=== PATIENT | female | born 1980 | race American Indian/Alaskan Native ===

== ENCOUNTER 2018-07-26 12:56 | Emergency (ER) | payer MEDICAID ==
[~2018-07-26] VITALS: Ht 165.1 cm; Wt 63.5 kg
[2018-07-26] MEDS ORDERED: IBU800 MG PO (13:47)
== END 2018-07-26 14:12 | disposition home or self-care (01) ==
LOC: ED 12:56
DX: R51 Headache (principal); F17.200 Nicotine dependence, unspecified, uncomplicated
CPT/HCPCS: 99283; 99406